=== PATIENT | male | born 1940 | race Caucasian/White ===

== ENCOUNTER 2017-01-14 12:20 | Inpatient (IN) ==
[2017-01-14] MEDS ORDERED: Ondansetron 4 MG/2 ML VIAL IVP ONE ×2 (12:52→16:33)
[2017-01-14] MEDS ORDERED: 0.9 % Sodium Chloride 500 ML IVC ONE (12:53)
[2017-01-14] MEDS ORDERED: *HR* Morphine 2 MG/ML SYRINGE IVP ONE (12:53)
--- NOTE | 2017-01-14 12:56 | Emergency Department Note ---
Disposition Clinical Impression: Metastatic disease, Liver dysplastic nodule, Supratherapeutic INR, Transaminitis Abdominal pain Qualifiers: Abdominal location: unspecified location Qualified Code(s): R10.9 - Unspecified abdominal pain Disposition: Admitted As Inpatient Condition: Fair Abdominal Pain HPI - General Chief Complaint: ED Abdominal Pain Stated Complaint: ABD Pain Time Seen by Provider: 01/14/17 12:38 Source: patient Mode of arrival: wheelchair Limitations: no limitations Nursing Notes Reviewed: Yes Vital Signs Reviewed: Yes - History of Present Illness HPI Narrative: 76-year-old gentleman history of COPD, CVA, A. fib on anticoagulation with Coumadin presents for evaluation of abdominal pain. Patient is a difficult historian is hard of hearing. Much of the history provided by the daughter at bedside. As the patient has had a week's worth of abdominal pain primarily in the right side and right upper quadrant. Evaluated by primary doctor week ago and had a CT of the had is his concerns of head pain as well as ultrasound of the liver. Patient was scheduled to have a follow-up study of CT of the abdomen and pelvis with contrast today. States that the pain has worsened. Pain is primarily in the right side. Reports some nausea no episodes of emesis. Seen in anticoagulation clinic earlier today and was noted to have supratherapeutic INR. No overt signs of bleeding. No difficulty urinating. No change in bowels. No difficulty breathing. Patient does live independently at home. Patient was treated with azithromycin for a sinus infection in the last week. Denies history of ETOH Pt Subjective Complaint: abdominal pain Onset (ago): week(s) Pain Scale: 8 - Related Data Home Medications Medication Instructions Recorded Confirmed Fluticasone/Salmeterol [Advair 1 each IH BID 08/12/15 01/14/17 500-50 Diskus] Lisinopril [Zestril] 10 mg PO DAILY 08/12/15 01/14/17 Omeprazole [PriLOSEC] 20 mg PO DAILY 08/12/15 01/14/17 Potassium Chloride [Klor-Con 10 meq PO DAILY 08/12/15 01/14/17 Sprinkle] Simvastatin [Zocor] 40 mg PO HS 08/12/15 01/14/17 Multivit-Min/FA/Lycopen/Lutein 1 each PO DAILY 01/14/17 01/14/17 [Centrum Silver Tablet] [place]-3/Dha/Epa/Fish Oil [Fish Oil 1,000 mg PO DAILY 01/14/17 01/14/17 1,000 mg Softgel] Warfarin [Coumadin] 2.5 mg PO SUMOTUWE 01/14/17 Allergies Allergy/AdvReac Type Severity Reaction Status Date / Time aspirin Allergy Hives Verified 01/14/17 12:22 Penicillins Allergy Hives Verified 01/14/17 12:22 All systems ED: reviewed and negative except as stated. Constitutional: Reports: as per HPI. Denies: fever Eyes: Reports: as per HPI ENT ED: Reports: as per HPI Cardiovascular: Reports: as per HPI. Denies: palpitations Respiratory: Reports: as per HPI Gastrointestinal: Reports: as per HPI, abdominal pain, nausea. Denies: vomiting Genitourinary: Reports: as per HPI Musculoskeletal: Reports: as per HPI Integumentary: Reports: as per HPI Neurological: Reports: as per HPI Psychiatric: Reports: as per HPI Endocrine: Reports: as per HPI Hematological/Lymphatic: Reports: as per HPI Allergic/Immunologic: Reports: as per HPI Abdominal Pain PMH - Past Medical History Medical history: Reports: COPD, CVA Psychiatric history: Reports: no psych history - Social History Smoking status: Former smoker Alcohol use: Reports: none Drug use: Reports: none Physical Exam - General Limitations: no limitations General appearance: alert, in no apparent distress - Head Head exam: atraumatic, normocephalic, normal inspection - Eye Eye exam: Present: normal appearance, EOMI. Absent: scleral icterus - ENT ENT exam: normal exam, mucous membranes moist - Neck Neck exam: Present: normal inspection, trachea midline - Chest Chest inspection: Present: normal inspection, symmetric chest wall rise - Respiratory Respiratory exam: Present: prolonged expiratory phase, other (Diffusely diminished). Absent: accessory muscle use - Cardiovascular Cardiovascular exam: Present: regular rate, normal rhythm - Abdominal Exam Abdominal exam: Present: soft, tenderness (Mild right-sided tenderness). Absent : distention, guarding, rebound - Extremities Exam Extremities exam: Present: normal inspection. Absent: pedal edema Course Course Narrative: Patient seen and examined upon arrival. Patient's history provided by daughter at bedside. Patient will get a cardio evaluation with EKG as well as abdominal evaluation with CT, labs. Pain control with IV fluids and antiemetics and opiates disposition pending. - Reevaluation(s) Reevaluation #1: Patient seen and examined. Patient pain appears to be controlled. Time: 16:00 Reevaluation #2: Updated family on plan of care. Concerns about metastatic disease to the liver. Patient denies any history of colon cancers. Denies any family history of colon cancers. Denies any recent colonoscopies. Does have a formal smoking history. Time: 16:00 Reevaluation #3: Patient family at bedside. Discussed concerns of malignancy and cancer. Tinted answer all questions at that time. Meal tray ordered. Time: 16:13 Vital Signs Temperature 97.4 F L 01/14/17 12:22 Pulse Rate 119 01/14/17 12:22 Respiratory Rate 18 01/14/17 12:22 Blood Pressure 135/81 01/14/17 12:22 O2 Sat by Pulse Oximetry 95 01/14/17 12:22 Temperature 98.3 F 01/14/17 18:34 Pulse Rate 102 01/14/17 18:34 Respiratory Rate 17 01/14/17 18:34 Blood Pressure 126/81 01/14/17 18:34 O2 Sat by Pulse Oximetry 95 01/14/17 18:34 Oxygen Delivery Oxygen Delivery Room Air Abdominal Pain - MDM Narrative Medical decision making narrative: 76-year-old male percents for evaluation abdominal pain. Patient is a difficult historian. History provided by the daughter at bedside. Notes to be approximately weeks with abdominal pain. Patient's abdominal workup reveals concerns for metastatic disease to the liver. Possible colon versus lung. Patient does have a smoking history. Patient also has no known recent colonoscopies. Patient's abnormalities on CAT scan likely treated T abnormalities in the lab work. Patient does have elevated total bilirubin as well as transaminitis and alkaline phosphatase. His pain was controlled with opiates. Patient's abdominal exam is nonsurgical. Information and concerns for possible metastatic disease was related to the family as well as the patient bedside. Patient be admitted to the hospital service for pain control and further monitoring to find the etiology of the patient's malignancy. - Lab Data Lab results reviewed: Yes I reviewed the patient's lab results. Result diagrams: 01/14/17 13:05 01/14/17 13:05 Lab Results 01/14/17 01/14/17 01/14/17 Range/Units 13:05 13:05 13:05 WBC 10.3 (4.3-11.1) K/mcL RBC 5.41 (4.19-5.50) M/mcL Hgb 16.0 (12.9-16.9) g/dL Hct 47.7 (37.5-50.1) % MCV 88.2 (83.0-100.0) fL MCH 29.6 (28.0-33.3) pg MCHC 33.5 (31.6-35.5) g/dL RDW 17.7 H (11.5-14.5) % Plt Count 243 (140-400) K/mcL MPV 11.2 (9.4-12.4) fL Immature Gran % 1.1 (0-4) % Seg Neutrophils % 70.8 % Lymphocytes % 16.2 % Monocytes % 9.5 % Eosinophils % 1.8 % Basophils % 0.6 % Neutrophils # 7.3 (1.6-8.9) K/mcL Lymphocytes # 1.7 (0.6-4.6) K/mcL Monocytes # 1.0 (0.0-1.3) K/mcL Eosinophils # 0.2 (0.0-0.6) K/mcL Basophils # 0.1 (0.0-0.2) K/mcL PT 65.0 H* (9.4-12.1) Seconds INR 5.7 H* Sodium 135 L (136-145) mEq/L Potassium 4.4 (3.5-4.5) mEq/L Chloride 101 (98-109) mEq/L Carbon Dioxide 25 (19-29) mEq/L BUN 20 (8-26) mg/dL Creatinine 1.16 (0.72-1.25) mg/dL Est GFR ( Amer) > 60 (> 60) Est GFR (Non-Af Amer) > 60 (> 60) BUN/Creatinine Ratio 17 (6-26) Glucose 72 (70-99) mg/dL Calculated Osmolality 281 (280-300) Lactic Acid (0.5-2.2) mmol/L Calcium 9.8 (8.6-10.8) mg/dL Total Bilirubin 6.6 H (0.2-1.2) mg/dL Direct Bilirubin 5.0 H (0.0-0.5) mg/dL Indirect Bilirubin 1.6 H (0.0-1.2) mg/dL AST 202 H (5-34) Units/L ALT 59 H (0-55) Units/L Alkaline Phosphatase 310 H (38-126) Units/L Troponin I (0-0.03) ng/mL Serum Total Protein 7.0 (6.0-8.3) g/dL Albumin 2.7 L (3.5-5.0) g/dL Globulin 4.3 H (2.4-3.5) g/dL Albumin/Globulin Ratio 0.6 L (1.1-2.2) Lipase 105 H (8-78) Units/L Urine Color (Yellow) Urine Clarity (Clear) Urine pH (5.0-8.0) pH Units Ur Specific [place] (1.010-1.025) Urine Protein (Neg-Trace) mg/dL Urine Glucose (UA) (Normal) mg/dL Urine Ketones (Negative) mg/dL Urine Blood (Negative) Urine Nitrite (Negative) Urine Bilirubin (Negative) Urine Urobilinogen (Normal) mg/dL Ur Leukocyte Esterase (Negative) Urine Microscopic RBC (0-3) per hpf Urine Microscopic WBC (0-3) per hpf Ur Squamous Epith Cells (None-Few) per lpf Urine Bacteria (None-Few) per hpf Hyaline Casts (None-Few) per lpf Ur Culture Indicated? (NO) 01/14/17 01/14/17 01/14/17 Range/Units 13:05 13:05 15:23 WBC (4.3-11.1) K/mcL RBC (4.19-5.50) M/mcL Hgb (12.9-16.9) g/dL Hct (37.5-50.1) % MCV (83.0-100.0) fL MCH (28.0-33.3) pg MCHC (31.6-35.5) g/dL RDW (11.5-14.5) % Plt Count (140-400) K/mcL MPV (9.4-12.4) fL Immature Gran % (0-4) % Seg Neutrophils % % Lymphocytes % % Monocytes % % Eosinophils % % Basophils % % Neutrophils # (1.6-8.9) K/mcL Lymphocytes # (0.6-4.6) K/mcL Monocytes # (0.0-1.3) K/mcL Eosinophils # (0.0-0.6) K/mcL Basophils # (0.0-0.2) K/mcL PT (9.4-12.1) Seconds INR Sodium (136-145) mEq/L Potassium (3.5-4.5) mEq/L Chloride (98-109) mEq/L Carbon Dioxide (19-29) mEq/L BUN (8-26) mg/dL Creatinine (0.72-1.25) mg/dL Est GFR ( Amer) (> 60) Est GFR (Non-Af Amer) (> 60) BUN/Creatinine Ratio (6-26) Glucose (70-99) mg/dL Calculated Osmolality (280-300) Lactic Acid 1.8 (0.5-2.2) mmol/L Calcium (8.6-10.8) mg/dL Total Bilirubin (0.2-1.2) mg/dL Direct Bilirubin (0.0-0.5) mg/dL Indirect Bilirubin (0.0-1.2) mg/dL AST (5-34) Units/L ALT (0-55) Units/L Alkaline Phosphatase (38-126) Units/L Troponin I 0.00 (0-0.03) ng/mL Serum Total Protein (6.0-8.3) g/dL Albumin (3.5-5.0) g/dL Globulin (2.4-3.5) g/dL Albumin/Globulin Ratio (1.1-2.2) Lipase (8-78) Units/L Urine Color [place] A (Yellow) Urine Clarity Cloudy A (Clear) Urine pH 5.0 (5.0-8.0) pH Units Ur Specific [place] 1.029 H (1.010-1.025) Urine Protein Trace (Neg-Trace) mg/dL Urine Glucose (UA) Normal (Normal) mg/dL Urine Ketones 15 H (Negative) mg/dL Urine Blood Large H (Negative) Urine Nitrite Negative (Negative) Urine Bilirubin Moderate H (Negative) Urine Urobilinogen Normal (Normal) mg/dL Ur Leukocyte Esterase Trace H (Negative) Urine Microscopic RBC TNTC H (0-3) per hpf Urine Microscopic WBC 0-3 (0-3) per hpf Ur Squamous Epith Cells Moderate H (None-Few) per lpf Urine Bacteria None Seen (None-Few) per hpf Hyaline Casts None Seen (None-Few) per lpf Ur Culture Indicated? YES A (NO) - Radiology Data Radiology results reviewed: Yes I reviewed the patient's radiology results. Abdomen/Pelvis CT 01/14/17 13:50 IMPRESSION: 1. Innumerable liver lesions most consistent with metastatic disease. 2. New, pulmonary nodules within the right middle and right lower lobe concerning for metastatic origin. 3. Small right pleural effusion. 4. Question of asymmetric right colon wall thickening. Recommend colonoscopy. D/ / 01/14/2017 15:03:49 Enrique Mike MD / Cassidy Conrad Interpreting Provider: Enrique Mike MD - EKG Data EKG attestation: Yes I reviewed and interpreted this EKG. Rate: tachycardia Rhythm: A.Fib Zap/QRS: left axis deviation Interpretation: no acute changes, unchanged when compared to prior tracing (date ), nonspecific ST-T wave changes S.B.A.R. - S.B.A.R. Situation: Demographics, MOA Background: Presenting Complaint Assessment: Vital Signs, Course and respsone to treatment, Patient/Family Expectation Recommendation: Barrier(s) to disposition, Recommendation based on pending studies, treatments, or consults S.B.A.R. Report Given to: Ema Pepper Repor Time: 16:02 Attestation Statement - Attestation Attestation: I examined this patient and my medical decision-making was reviewed with the LABEL REMOVER/PA/Advanced Practice Nurse/Resident Physician. I agree with the documented findings, disposition and treatment plan as described except to the extent set forth below. 76-year-old male presents to the ED by family due to ongoing abdominal pain. He has had several week progression of pain in his upper abdomen more so on the right upper quadrant. Poor appetite. No worsening of the pain with food. No associated fevers. No vomiting or diarrhea. No chest pain or dyspnea. Pleasant elderly male with very poor hearing and most medication is through his daughter writing questions. Chest is clear bilaterally. Chest wall nontender. Oropharynx is clear and moist. Abdomen soft with moderate tenderness in the upper abdomen. Bowel sounds are present throughout. No gross distention of the abdomen. Extremities warm and dry. He was provided with symptom control. Labs reveal moderate elevation of his AST , AST and alkaline phosphatase was elevated bilirubin as well. CT of the abdomen reveals multiple masses within the liver consistent with metastatic process. He will be admitted for further evaluation.
[2017-01-14 13:18] LABS: Basophils # 0.1 K/mcL (0.0-0.2); Basophils % 0.6 %; Eosinophils # 0.2 K/mcL (0.0-0.6); Eosinophils % 1.8 %; Hematocrit 47.7 % (37.5-50.1); Immature Granulocytes % 1.1 % (0-4); Lymphocytes # 1.7 K/mcL (0.6-4.6); Lymphocytes % 16.2 %; Mean Corpuscular HGB Conc 33.5 g/dL (31.6-35.5); Mean Corpuscular Hemoglobin 29.6 pg (28.0-33.3); Mean Corpuscular Volume 88.2 fL (83.0-100.0); Mean Platelet Volume 11.2 fL (9.4-12.4); Monocytes % 9.5 %; Neutrophils # 7.3 K/mcL (1.6-8.9); Platelet Count 243 K/mcL (140-400); Red Blood Count 5.41 M/mcL (4.19-5.50); Red Cell Distribution Width 17.7 % (11.5-14.5); Segmented Neutrophils % 70.8 %
[2017-01-14 13:31] LABS: Alanine Aminotransferase 59 Units/L (0-55); Albumin 2.7 g/dL (3.5-5.0); Albumin/Globulin Ratio 0.6 (1.1-2.2); Alkaline Phosphatase 310 Units/L (38-126); Aspartate Amino Transferase 202 Units/L (5-34); BUN/Creatinine Ratio 17 (6-26); Bilirubin,Indirect 1.6 mg/dL (0.0-1.2); Bilirubin,Total 6.6 mg/dL (0.2-1.2); Blood Urea Nitrogen 20 mg/dL (8-26); Calcium 9.8 mg/dL (8.6-10.8); Carbon Dioxide 25 mEq/L (19-29); Chloride 101 mEq/L (98-109); Globulin 4.3 g/dL (2.4-3.5); Glucose 72 mg/dL (70-99); Lipase 105 Units/L (8-78); Osmolality,Calculated 281 (280-300); Potassium 4.4 mEq/L (3.5-4.5); Sodium 135 mEq/L (136-145); eGFR For African Americans > 60 (> 60); eGFR For Non-African Americans > 60 (> 60)
[2017-01-14 13:37] LABS: INR 5.7
[2017-01-14 15:40] LABS: Bilirubin,Urine Moderate (Negative); Blood,Urine Large (Negative); Clarity,Urine Cloudy (Clear); Color,Urine Orange (Yellow); Glucose,Urine (UA) Normal (Normal); Ketones,Urine 15 mg/dL (Negative); Leukocyte Esterase,Urine Trace (Negative); Nitrite,Urine Negative (Negative); Protein,Urine Trace mg/dL (Neg-Trace); Specific Gravity,Urine 1.029 (1.010-1.025); Urobilinogen,Urine Normal (Normal)
[2017-01-14 15:42] LABS: Bacteria,Urine None Seen per hpf (None-Few); Hyaline Casts,Urine None Seen per lpf (None-Few); RBC,Urine TNTC per hpf (0-3); Squamous Epithelial Cell,Urine Moderate per lpf (None-Few); WBC,Urine 0-3 per hpf (0-3)
[2017-01-14] MEDS ORDERED: Naloxone 0.4 MG/ML INJ IVP PRN (21:02)
[2017-01-14] MEDS ORDERED: *HR* HYDROmorphone (PF) 1 MG/ML SYRINGE IVP PRN (21:05)
[2017-01-14] MEDS ORDERED: *HR* Morphine 2 MG/ML SYRINGE IVP PRN (21:05)
[2017-01-14] MEDS ORDERED: *HR* Phytonadione 5 MG TABLET PO ONE (21:06)
--- NOTE | 2017-01-14 21:29 | Electrocardiograph Report ---
[place] [facility] Test Date: 2017-01-14 Pat Name: Francis Berry Department: 102 Room: 3A52 Gender: M Recruitment Consultant: Eduardo : 1940 Requested By: Espinoza Nash Order Number: [id number] Reading MD: Tom Cerrato MD Measurements Intervals [place] Rate: 126 P: [place]: 0 QRS: -12 QRSD: 74 T: 30 QT: 300 QTc: 375 Interpretive Statements ATRIAL FIBRILLATION WITH RAPID VENTRICULAR RESPONSE NONSPECIFIC T-WAVE ABNORMALITY ABNORMAL RHYTHM ECG Electronically Signed On 01-14-2017 21:28:01 EDT by Tom Cerrato MD
--- NOTE | 2017-01-14 21:44 | Internal Med History&Physical ---
Date of Encounter: 01/14/17 Time of Encounter: 21:00 Assessment and Plan (1) Abdominal pain Current visit: Yes Status: Acute Likely due to metastatic burden on the liver. Pain relief as needed. Qualifiers: Abdominal location: right upper quadrant Qualified Code(s): R10.11 - Right upper quadrant pain (2) Liver metastases Current visit: Yes Status: Acute Unknown primary at this time. CT scan of the abdomen reports colon wall thickening and recommends colonoscopy. check CEA, AFP, Ca19-9. Will consult GI for possible colonoscopy. If negative, consider CT neck, as the pt reports discomfort in the throat and is being treated with azithromycin by the PCP. Consider Oncology consult. INR is supratherapeutic at this time - and cannot have tissue biopsy at this time. Hold warfarin, will give oral vitamin K and monitor INR (3) Lung metastases Current visit: Yes Status: Acute Unknown primary at this time. CT scan of the abdomen reports colon wall thickening and recommends colonoscopy. check CEA, AFP, Ca19-9. Will consult GI for possible colonoscopy. If negative, consider CT neck, as the pt reports discomfort in the throat and is being treated with azithromycin by the PCP. Consider Oncology consult. Qualifiers: Laterality: right Qualified Code(s): C78.01 - Secondary malignant neoplasm of right lung (4) Supratherapeutic INR Current visit: Yes Status: Acute Hold warfarin, will give oral vitamin K and monitor INR. (5) Hilar adenopathy Current visit: Yes Status: Acute Radiologist recommends CT chest for further evaluation (6) Colon wall thickening Current visit: Yes Status: Acute CT scan showed assymetric right colon wall thickening. Will check CEA. GI consult for possible colonoscopy (7) Pleural effusion, right Current visit: Yes Status: Acute Monitor (8) Atrial fibrillation Current visit: Yes Status: Acute laboratory monitor. Hold warfarin Qualifiers: Atrial fibrillation type: chronic Qualified Code(s): I48.2 - Chronic atrial fibrillation (9) Transaminitis Current visit: Yes Status: Acute Likely secondary to metastatic disease. Internal Medicine - H&P: HPI Chief complaint: RUQ abdominal pain Admitted From: Emergency Dept Plans for Post Hospital Care: Home History of present illness: Pt has hearing problems and hence I communicated with the pt, by writing on the paper. Pts daughter at the bedside and was able to give clinical details. Mr. Berry is a 76 year old male with past medical history significant for atrial fibrillationon anticoagulation with warfarin, COPD, HTN. He reports history of abdominal/right upper quadrant abdominal pain. He recently had ultrasound scan of the liver showed multiple nodules throughout the liver suspicious for metastasis. Patient was advised to have a CT scan of the abdomen and was supposed to have it done today. Patient apparently had severe right upper quadrant abdominal pain and hence his daughter brought him to the emergency department. Patient describes a cramp-like pain in the right upper quadrant/right infra-axillary area, with pain going to the anterior abdomen. Pain is 8/10 and worse on movement and deep breath. He denies nausea vomiting. He denies chest pain, shortness of breath. Reports occasional back sputum. He reports dark orange colored urine but denies dysuria or hematuria. He denies melena/hematochezia. He reports reduced appetite and has not eaten 48 hours. He reports 10 pound weight loss since [place]-time. He reports difficulty swallowing and discomfort in the throat for a few weeks. He has no known h/o cancers. He apparently never had colonoscopy. He was evaluated in the emergency department and the CT scan of abdomen and pelvis reported: 1. Innumerable liver lesions most consistent with metastatic disease. 2. New, pulmonary nodules within the right middle and right lower lobe concerning for metastatic origin. 3. Small right pleural effusion. 4. Question of asymmetric right colon wall thickening. Recommend colonoscopy. He is admitted to the hospitalist service for further workup and management. Past Med Surg Social Fam HX - Past Medical History Medical history: COPD, CVA Psychiatric history: no psych history - Social History Smoking Status: Former smoker Smokeless Tobacco Status: No Alcohol use: none Drug use: none - Additional Family History Additional family history: His mother had h/o crohns's disease and of complications Internal Medicine - H&P: Meds Fluticasone/Salmeterol [Advair 500-50 Diskus] 1 each IH BID 08/12/15 [History] Lisinopril [Zestril] 10 mg PO DAILY 08/12/15 [History] Omeprazole [PriLOSEC] 20 mg PO DAILY 08/12/15 [History] Potassium Chloride [Klor-Con Sprinkle] 10 meq PO DAILY 08/12/15 [History] Simvastatin [Zocor] 40 mg PO HS 08/12/15 [History] Multivit-Min/FA/Lycopen/Lutein [Centrum Silver Tablet] 1 each PO DAILY 01/14/17 [History] [place]-3/Dha/Epa/Fish Oil [Fish Oil 1,000 mg Softgel] 1,000 mg PO DAILY 01/14/17 [History] Warfarin [Coumadin] 2.5 mg PO SUMOTUWE 01/14/17 [History] Allergies aspirin Allergy (Verified 01/14/17 12:22) Hives Penicillins Allergy (Verified 01/14/17 12:22) Hives All Systems PM: A 10-system review of systems was performed and is negative for pertinent findings except as documented above in the HPI. - Constitutional Vitals: Temp Pulse Resp BP Pulse Ox 98.3 F 102 17 126/81 95 01/14/17 18:34 01/14/17 18:34 01/14/17 18:34 01/14/17 18:34 01/14/17 18:34 Exam: General: In mild distress at the time of my evaluation HEENT: Oral mucosa is moist. scleral icterus present Neck: No obvious neck swellings Lungs: Clear to auscultation Cardiac: Irregular rhythm. No significant murmurs Abdomen: RUQ and epigastric tenderness present. Bowel sounds present Genitourinary: No stout catheter Neurological: Alert and oriented. No gross localizing deficits Psych: Not aggressive or agitated Extremities: Mild leg edema present Skin: No generalized rash Internal Med - H&P Results - Labs CBC & Chem 7: 01/15/17 05:02 01/15/17 05:02 - EKG Data -: EKG Interpreted by Myself - EKG Data EKG comments: Atrial fibrillation with rapid response, heart rate of 126 01/15/17 04:38 - Impressions ITS Impressions Abdomen/Pelvis CT 01/14/17 13:50 IMPRESSION: 1. Innumerable liver lesions most consistent with metastatic disease. 2. New, pulmonary nodules within the right middle and right lower lobe concerning for metastatic origin. 3. Small right pleural effusion. 4. Question of asymmetric right colon wall thickening. Recommend colonoscopy. D/ / 01/14/2017 15:03:49 Enrique Mike MD / Cassidy Conrad Interpreting Provider: Enrique Mike MD Chest X-Ray 01/14/17 15:58 IMPRESSION: 1. 1.8 cm left hilar nodule. A follow-up chest CT is recommended, especially given the findings of metastatic disease in the abdomen. 2. No acute cardiopulmonary disease D/ / Abran Duong MD / Abran Duong MD Interpreting Provider: Abran Duong MD - VTE Reasons for not Prescribing Prophylaxis: Not indicated-Anticoagulated or INR therapeutic
[2017-01-15 05:30] LABS: INR 6.2; Prothrombin Time 70.3 Seconds (9.4-12.1)
[2017-01-15 05:40] LABS: Alanine Aminotransferase 54 Units/L (0-55); Albumin 2.4 g/dL (3.5-5.0); Albumin/Globulin Ratio 0.6 (1.1-2.2); Alkaline Phosphatase 280 Units/L (38-126); Aspartate Amino Transferase 202 Units/L (5-34); BUN/Creatinine Ratio 19 (6-26); Bilirubin,Total 5.6 mg/dL (0.2-1.2); Blood Urea Nitrogen 20 mg/dL (8-26); Calcium 9.2 mg/dL (8.6-10.8); Carbon Dioxide 23 mEq/L (19-29); Chloride 101 mEq/L (98-109); Globulin 3.9 g/dL (2.4-3.5); Glucose 88 mg/dL (70-99); Magnesium 1.7 mg/dL (1.6-2.6); Osmolality,Calculated 278 (280-300); Potassium 4.2 mEq/L (3.5-4.5); Sodium 133 mEq/L (136-145); Total Protein 6.3 g/dL (6.0-8.3); eGFR For African Americans > 60 (> 60); eGFR For Non-African Americans > 60 (> 60)
[2017-01-15 05:45] LABS: Hematocrit 44.4 % (37.5-50.1); Hemoglobin 14.6 g/dL (12.9-16.9); Mean Corpuscular HGB Conc 32.9 g/dL (31.6-35.5); Mean Corpuscular Hemoglobin 28.8 pg (28.0-33.3); Mean Corpuscular Volume 87.6 fL (83.0-100.0); Mean Platelet Volume 11.2 fL (9.4-12.4); Platelet Count 221 K/mcL (140-400); Red Blood Count 5.07 M/mcL (4.19-5.50); Red Cell Distribution Width 16.5 % (11.5-14.5)
[2017-01-15 06:23] LABS: Carcinoembryonic Antigen 210.9 ng/mL (0-5.0)
[2017-01-15] MEDS: Budesonide/Formoterol 160/4.5 MDI IH SCH ×2 (08:23→20:09)
[2017-01-15] MEDS: Multivit/Ca/Min/Fe/FA 1 TAB TABLET PO SCH (09:17)
[2017-01-15] MEDS ORDERED: *HR* Morphine 2 MG/ML SYRINGE IVP PRN (11:58)
[2017-01-15] MEDS ORDERED: 0.9 % Sodium Chloride 250 ML ONE (12:58)
--- NOTE | 2017-01-15 15:09 | Internal Med Progress Note ---
Date of Encounter: 01/15/17 Time of Encounter: 15:07 - Assessment and plan (1) Primary esophageal malignancy Current Visit: Yes Status: Acute Assessment and plan: CT of the chest showed distal esophageal mass, most likely primary. GI on board, plan for EGD with biopsy on Wednesday. Will need oncology consultation after the biopsy. (2) Abdominal pain Current Visit: Yes Status: Acute Assessment and plan: Much better than yesterday, most likely secondary to esophageal mass discovered on the CAT scan. Continue pain medications. Qualifiers: Abdominal location: epigastric Qualified Code(s): R10.13 - Epigastric pain (3) Supratherapeutic INR Current Visit: Yes Status: Acute Assessment and plan: Patient on Coumadin for atrial fibrillation. INR supratherapeutic at 5.7, was given vitamin K yesterday, repeat INR increased to 6.2. Will have to reverse coagulopathy as patient needs to undergo esophageal mass biopsy. Will transfuse fresh frozen plasma today, repeat INR, goal INR less than 1.5 for procedure on Wednesday. (4) Liver metastases Current Visit: Yes Status: Acute (5) Lung metastases Current Visit: Yes Status: Acute Qualifiers: Laterality: right Qualified Code(s): C78.01 - Secondary malignant neoplasm of right lung (6) Atrial fibrillation Current Visit: Yes Status: Acute Assessment and plan: Stable, anticoagulation has been held for supratherapeutic INR in anticipation of biopsy of esophageal mass on Wednesday. Qualifiers: Atrial fibrillation type: chronic Qualified Code(s): I48.2 - Chronic atrial fibrillation - Subjective Interval history: Patient seen at the bedside, deficit in both ears, daughter at the bedside. Reports that the pain is much better on the right side of the abdomen compared to yesterday. Denies any nausea, vomiting, chest pain, bleeding from any sites of the body. - Constitutional Vitals: Temp Pulse Resp BP Pulse Ox 98.3 F 102 17 125/78 93 01/15/17 13:36 01/15/17 13:36 01/15/17 13:36 01/15/17 13:36 01/15/17 13:36 General appearance: Present: A&O X 3 Exam: HEENT: Oral mucosa is moist. scleral icterus present Neck: No obvious neck swellings Lungs: Clear to auscultation Cardiac: S1 and S2, no murmurs rubs or gallops Abdomen: RUQ and epigastric tenderness present. Bowel sounds present Genitourinary: No stout catheter Neurological: Alert and oriented. No gross localizing deficits Psych: Not aggressive or agitated Extremities: No edema Skin: No generalized rash Internal Medicine: Result - Labs CBC & Chem 7: 01/15/17 05:02 01/15/17 05:02 Labs: Short CBC 01/15/17 Range/Units 05:02 WBC 9.1 (4.3-11.1) K/mcL Hgb 14.6 (12.9-16.9) g/dL Hct 44.4 (37.5-50.1) % Plt Count 221 (140-400) K/mcL BMP 01/15/17 05:02 Sodium 133 L Potassium 4.2 Chloride 101 Carbon Dioxide 23 BUN 20 Creatinine 1.07 Glucose 88 Calcium 9.2 Liver Function 01/15/17 Range/Units 05:02 Total Bilirubin 5.6 H (0.2-1.2) mg/dL AST 202 H (5-34) Units/L ALT 54 (0-55) Units/L Alkaline Phosphatase 280 H (38-126) Units/L Albumin 2.4 L (3.5-5.0) g/dL - ABG Interpretation ABG results: PT/INR, D-dimer PT 70.3 Seconds (9.4-12.1) H* 01/15/17 05:02 - Impressions Impressions Chest CT 01/15/17 10:38 IMPRESSION: 1. Large soft tissue mass in the distal esophagus measuring 3.3 x 3.1 cm, compatible with primary esophageal cancer. 2. Paraesophageal lymph node, compatible with metastatic disease. 3. Multiple pulmonary nodules, compatible with metastatic disease. 4. Re-demonstration of liver metastases seen to better advantage on prior CT with IV contrast. 5. Emphysema. Findings were discussed with Dr. Iverson on 01/15/2017 at 11:50 a.m. D/ / 01/15/2017 12:12:26 Leola Hardin MD / terrell Interpreting Provider: Leola Hardin MD - VTE Reasons for not Prescribing Prophylaxis: Not indicated-Anticoagulated or INR therapeutic Consult Discharge Plan - Plan Referrals: Cici Godinez CNP [Primary Care Provider] -
--- NOTE | 2017-01-15 15:19 | Event Note ---
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 Coagulopathy with high INR due to coumadin Rec; Correct coagulopathy EGD with biopsies on wednesday
[2017-01-15] MEDS: Ipratropium/Albuterol Neb 3 ML IH PRN (20:09)
[2017-01-15] MEDS: *HR* OxyCODONE Immed Rel 5 MG TABLET PO PRN (21:28)
[2017-01-16] MEDS: Multivit/Ca/Min/Fe/FA 1 TAB TABLET PO SCH (08:50)
[2017-01-16 09:11] LABS: Basophils # 0.1 K/mcL (0.0-0.2); Basophils % 0.7 %; Eosinophils # 0.3 K/mcL (0.0-0.6); Hematocrit 43.8 % (37.5-50.1); Hemoglobin 14.7 g/dL (12.9-16.9); INR 1.6; Immature Granulocytes % 0.6 % (0-4); Lymphocytes # 1.1 K/mcL (0.6-4.6); Lymphocytes % 12.9 %; Mean Corpuscular HGB Conc 33.6 g/dL (31.6-35.5); Mean Corpuscular Hemoglobin 29.3 pg (28.0-33.3); Mean Corpuscular Volume 87.3 fL (83.0-100.0); Mean Platelet Volume 10.8 fL (9.4-12.4); Monocytes # 0.8 K/mcL (0.0-1.3); Neutrophils # 6.3 K/mcL (1.6-8.9); Platelet Count 217 K/mcL (140-400); Prothrombin Time 17.1 Seconds (9.4-12.1); Red Blood Count 5.02 M/mcL (4.19-5.50); Red Cell Distribution Width 16.4 % (11.5-14.5); Segmented Neutrophils % 73.8 %
[2017-01-16 09:17] LABS: BUN/Creatinine Ratio 14 (6-26); Blood Urea Nitrogen 14 mg/dL (8-26); Calcium 9.1 mg/dL (8.6-10.8); Carbon Dioxide 21 mEq/L (19-29); Chloride 103 mEq/L (98-109); Glucose 152 mg/dL (70-99); Osmolality,Calculated 285 (280-300); Potassium 3.8 mEq/L (3.5-4.5); Sodium 136 mEq/L (136-145); eGFR For African Americans > 60 (> 60); eGFR For Non-African Americans > 60 (> 60)
[2017-01-16] MEDS: Budesonide/Formoterol 160/4.5 MDI IH SCH ×2 (10:40→20:19)
[2017-01-16] MEDS: Ipratropium/Albuterol Neb 3 ML IH PRN (10:43)
--- NOTE | 2017-01-16 11:53 | Internal Med Progress Note ---
Date of Encounter: 01/16/17 Time of Encounter: 11:51 - Assessment and plan (1) Primary esophageal malignancy Current Visit: Yes Status: Acute Assessment and plan: CT of the chest showed distal esophageal mass, most likely primary. GI on board, plan for EGD with biopsy on Wednesday. will consult oncology after biospy (2) Abdominal pain Current Visit: Yes Status: Acute Assessment and plan: most likely secondary to esophageal mass discovered on the CAT scan. Continue pain medications. Qualifiers: Abdominal location: epigastric Qualified Code(s): R10.13 - Epigastric pain (3) Supratherapeutic INR Current Visit: Yes Status: Acute Assessment and plan: Patient on Coumadin for atrial fibrillation. INR 1.6 today , s/p FFP yesterday hold coumadin for now for EGD and biopsy on wednesday. (4) Liver metastases Current Visit: Yes Status: Acute (5) Lung metastases Current Visit: Yes Status: Acute Qualifiers: Laterality: right Qualified Code(s): C78.01 - Secondary malignant neoplasm of right lung (6) Atrial fibrillation Current Visit: Yes Status: Acute Assessment and plan: Stable, anticoagulation has been held for supratherapeutic INR in anticipation of biopsy of esophageal mass on Wednesday. 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 does not have much pain now. Denies any nausea, vomiting, chest pain, bleeding from any sites of the body. planned for EGD with biopsy on wednesday with GI - Constitutional Vitals: Temp Pulse Resp BP Pulse Ox 97.9 F 105 18 124/85 94 01/16/17 11:15 01/16/17 11:15 01/16/17 11:15 01/16/17 11:15 01/16/17 11:15 General appearance: Present: A&O X 3 Exam: neck- supple chest- b/l clear, no added sounds CVS-s1 and s2, no mr//g abd-soft, mild tenderness in epigastrium and RUQ, bs are present ext- no edema Internal Medicine: Result - Labs CBC & Chem 7: 01/16/17 08:59 01/16/17 08:59 Labs: Short CBC 01/16/17 Range/Units 08:59 WBC 8.6 (4.3-11.1) K/mcL Hgb 14.7 (12.9-16.9) g/dL Hct 43.8 (37.5-50.1) % Plt Count 217 (140-400) K/mcL Neutrophils # 6.3 (1.6-8.9) K/mcL BMP 01/16/17 08:59 Sodium 136 Potassium 3.8 Chloride 103 Carbon Dioxide 21 BUN 14 Creatinine 1.01 Glucose 152 H Calcium 9.1 - ABG Interpretation ABG results: PT/INR, D-dimer PT 17.1 Seconds (9.4-12.1) H D 01/16/17 08:59 - Impressions Impressions Chest CT 01/15/17 10:38 IMPRESSION: 1. Large soft tissue mass in the distal esophagus measuring 3.3 x 3.1 cm, compatible with primary esophageal cancer. 2. Paraesophageal lymph node, compatible with metastatic disease. 3. Multiple pulmonary nodules, compatible with metastatic disease. 4. Re-demonstration of liver metastases seen to better advantage on prior CT with IV contrast. 5. Emphysema. Findings were discussed with Dr. Iverson on 01/15/2017 at 11:50 a.m. D/ / 01/15/2017 12:12:26 Leola Hardin MD / terrell Interpreting Provider: Leola Hardin MD - VTE Reasons for not Prescribing Prophylaxis: Not indicated-Anticoagulated or INR therapeutic Consult Discharge Plan - Plan Referrals: Ccii Godinez CNP [Primary Care Provider] -
[2017-01-16] MEDS: *HR* OxyCODONE Immed Rel 5 MG TABLET PO PRN ×2 (15:31→21:20)
[2017-01-17] MEDS: Budesonide/Formoterol 160/4.5 MDI IH SCH ×2 (07:56→20:29)
[2017-01-17] MEDS: Multivit/Ca/Min/Fe/FA 1 TAB TABLET PO SCH (08:04)
[2017-01-17 08:30] LABS: Basophils # 0.1 K/mcL (0.0-0.2); Basophils % 0.6 %; Eosinophils # 0.4 K/mcL (0.0-0.6); Eosinophils % 3.7 %; Hematocrit 44.4 % (37.5-50.1); Hemoglobin 14.7 g/dL (12.9-16.9); Immature Granulocytes % 1.1 % (0-4); Immature Platelets 5.7 % (1.1-6.1); Lymphocytes # 1.5 K/mcL (0.6-4.6); Lymphocytes % 13.6 %; Mean Corpuscular HGB Conc 33.1 g/dL (31.6-35.5); Mean Corpuscular Hemoglobin 29.3 pg (28.0-33.3); Mean Corpuscular Volume 88.6 fL (83.0-100.0); Mean Platelet Volume 10.4 fL (9.4-12.4); Monocytes # 1.2 K/mcL (0.0-1.3); Monocytes % 10.9 %; Neutrophils # 7.5 K/mcL (1.6-8.9); Platelet Count 228 K/mcL (140-400); Red Blood Count 5.01 M/mcL (4.19-5.50); Red Cell Distribution Width 16.8 % (11.5-14.5); Segmented Neutrophils % 70.1 %
[2017-01-17 08:43] LABS: BUN/Creatinine Ratio 13 (6-26); Blood Urea Nitrogen 14 mg/dL (8-26); Calcium 9.2 mg/dL (8.6-10.8); Carbon Dioxide 25 mEq/L (19-29); Chloride 103 mEq/L (98-109); Glucose 92 mg/dL (70-99); Osmolality,Calculated 286 (280-300); Sodium 138 mEq/L (136-145); eGFR For African Americans > 60 (> 60); eGFR For Non-African Americans > 60 (> 60)
--- NOTE | 2017-01-17 11:42 | Internal Med Progress Note ---
Date of Encounter: 01/17/17 Time of Encounter: 11:41 - Assessment and plan (1) Primary esophageal malignancy Current Visit: Yes Status: Acute Assessment and plan: CT of the chest showed distal esophageal mass, most likely primary. GI on board, plan for EGD with biopsy on Wednesday. will consult oncology after biospy (2) Abdominal pain Current Visit: Yes Status: Acute Assessment and plan: most likely secondary to esophageal mass discovered on the CAT scan. Continue pain medications. Qualifiers: Abdominal location: epigastric Qualified Code(s): R10.13 - Epigastric pain (3) Supratherapeutic INR Current Visit: Yes Status: Acute Assessment and plan: Patient on Coumadin for atrial fibrillation. INR 1.6 yesterday, s/p FFP hold coumadin for now for EGD and biopsy on wednesday. (4) Liver metastases Current Visit: Yes Status: Acute (5) Lung metastases Current Visit: Yes Status: Acute Qualifiers: Laterality: right Qualified Code(s): C78.01 - Secondary malignant neoplasm of right lung (6) Atrial fibrillation Current Visit: Yes Status: Acute Assessment and plan: Stable, anticoagulation has been held for supratherapeutic INR in anticipation of biopsy of esophageal mass on Wednesday. 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 Denies any nausea, vomiting, chest pain, bleeding from any sites of the body. planned for EGD with biopsy on wednesday with GI - Constitutional Vitals: Temp Pulse Resp BP Pulse Ox 98.1 F 103 20 119/81 93 01/17/17 07:24 01/17/17 07:24 01/17/17 07:57 01/17/17 07:24 01/17/17 07:57 General appearance: Present: A&O X 3 Exam: neck- supple chest- b/l clear, no added sounds CVS-s1 and s2, no mr//g abd-soft, mild tenderness in epigastrium and RUQ, bs are present ext- no edema Internal Medicine: Result - Labs CBC & Chem 7: 01/17/17 08:23 01/17/17 08:23 Labs: Short CBC 01/17/17 Range/Units 08:23 WBC 10.7 (4.3-11.1) K/mcL Hgb 14.7 (12.9-16.9) g/dL Hct 44.4 (37.5-50.1) % Plt Count 228 (140-400) K/mcL Neutrophils # 7.5 (1.6-8.9) K/mcL BMP 01/17/17 08:23 Sodium 138 Potassium 4.0 Chloride 103 Carbon Dioxide 25 BUN 14 Creatinine 1.07 Glucose 92 Calcium 9.2 - ABG Interpretation ABG results: PT/INR, D-dimer PT 17.1 Seconds (9.4-12.1) H D 01/16/17 08:59 - VTE Reasons for not Prescribing Prophylaxis: Not indicated-Anticoagulated or INR therapeutic Consult Discharge Plan - Plan Referrals: Cici Godinez [employer] [Primary Care Provider] -
[2017-01-17] MEDS: *HR* OxyCODONE Immed Rel 5 MG TABLET PO PRN (20:42)
[2017-01-18 07:39] LABS: AFP Tumor Marker Non-Pregnant 2888 ng/mL (0-9); Cancer Antigen-GI (CA 19-9) 2524 U/mL (0-37)
[2017-01-18] MEDS: Budesonide/Formoterol 160/4.5 MDI IH SCH ×2 (08:06→22:10)
[2017-01-18] MEDS: Multivit/Ca/Min/Fe/FA 1 TAB TABLET PO SCH (08:32)
[2017-01-18 08:46] LABS: Basophils # 0.1 K/mcL (0.0-0.2); Basophils % 0.6 %; Eosinophils # 0.4 K/mcL (0.0-0.6); Hematocrit 40.8 % (37.5-50.1); Hemoglobin 13.8 g/dL (12.9-16.9); Lymphocytes # 1.5 K/mcL (0.6-4.6); Lymphocytes % 14.7 %; Mean Corpuscular HGB Conc 33.8 g/dL (31.6-35.5); Mean Corpuscular Hemoglobin 29.8 pg (28.0-33.3); Mean Corpuscular Volume 88.1 fL (83.0-100.0); Monocytes # 1.1 K/mcL (0.0-1.3); Monocytes % 10.6 %; Platelet Count 207 K/mcL (140-400); Red Blood Count 4.63 M/mcL (4.19-5.50); Segmented Neutrophils % 69.1 %
[2017-01-18 08:53] LABS: INR 1.4; Prothrombin Time 15.7 Seconds (9.4-12.1)
[2017-01-18 09:03] LABS: BUN/Creatinine Ratio 14 (6-26); Blood Urea Nitrogen 14 mg/dL (8-26); Calcium 9.1 mg/dL (8.6-10.8); Carbon Dioxide 23 mEq/L (19-29); Chloride 106 mEq/L (98-109); Glucose 75 mg/dL (70-99); Osmolality,Calculated 285 (280-300); Potassium 4.2 mEq/L (3.5-4.5); Sodium 138 mEq/L (136-145); eGFR For African Americans > 60 (> 60); eGFR For Non-African Americans > 60 (> 60)
[2017-01-18] MEDS: 0.9 % Sodium Chloride 1,000 ML IVC SCH (12:13)
--- NOTE | 2017-01-18 14:24 | Internal Med Progress Note ---
Date of Encounter: 01/18/17 Time of Encounter: 14:19 - Assessment and plan (1) Primary esophageal malignancy Current Visit: Yes Status: Acute Assessment and plan: CT of the chest showed distal esophageal mass, most likely primary. GI on board, plan for EGD with biopsy today. will consult oncology after biospy (2) Abdominal pain Current Visit: Yes Status: Acute Assessment and plan: most likely secondary to esophageal mass discovered on the CAT scan. Continue pain medications. Qualifiers: Abdominal location: epigastric Qualified Code(s): R10.13 - Epigastric pain (3) Supratherapeutic INR Current Visit: Yes Status: Acute Assessment and plan: Patient on Coumadin for atrial fibrillation. INR 1.4 today hold coumadin for now for EGD and biopsy, will restart once stable after caridad procedure (4) Liver metastases Current Visit: Yes Status: Acute (5) Lung metastases Current Visit: Yes Status: Acute Qualifiers: Laterality: right Qualified Code(s): C78.01 - Secondary malignant neoplasm of right lung (6) Atrial fibrillation Current Visit: Yes Status: Acute Assessment and plan: Stable, anticoagulation has been held for biopsy of esophageal mass today. 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 Denies any nausea, vomiting, chest pain, bleeding from any sites of the body. planned for EGD with biopsy today with GI. - Constitutional Vitals: Temp Pulse Resp BP Pulse Ox 97.9 F 106 18 111/79 95 01/18/17 06:37 01/18/17 06:37 01/18/17 08:06 01/18/17 06:37 01/18/17 08:06 General appearance: Present: A&O X 3 Exam: neck- supple chest- b/l clear, no added sounds CVS-s1 and s2, no mr//g abd-soft, mild tenderness in RUQ, bs are present ext- no edema Internal Medicine: Result - Labs CBC & Chem 7: 01/18/17 08:16 01/18/17 08:16 Labs: Short CBC 01/18/17 Range/Units 08:16 WBC 10.2 (4.3-11.1) K/mcL Hgb 13.8 (12.9-16.9) g/dL Hct 40.8 (37.5-50.1) % Plt Count 207 (140-400) K/mcL Neutrophils # 7.0 (1.6-8.9) K/mcL BMP 01/18/17 08:16 Sodium 138 Potassium 4.2 Chloride 106 Carbon Dioxide 23 BUN 14 Creatinine 0.99 Glucose 75 Calcium 9.1 - ABG Interpretation ABG results: PT/INR, D-dimer PT 15.7 Seconds (9.4-12.1) H 01/18/17 08:16 - VTE Reasons for not Prescribing Prophylaxis: Not indicated-Anticoagulated or INR therapeutic Consult Discharge Plan - Plan Referrals: Cici Godinez [employer] [Primary Care Provider] -
[2017-01-18] MEDS ORDERED: *HR* FentaNYL (PF) 100 MCG/2 ML VIAL ONE (15:59)
[2017-01-18] MEDS ORDERED: *HR* Midazolam HCl 5 MG/5 ML VIAL IVP ONE (15:59)
--- NOTE | 2017-01-18 16:15 | Gastroenterology Consult Note ---
<Kali Gottlieb - Last Filed: 01/18/17 16:13> Date of Encounter: 01/18/17 Time of Encounter: 11:45 - Assessment and plan (1) Primary esophageal malignancy Current Visit: Yes Status: Acute Assessment and plan: CT of the chest showed distal esophageal mass, most likely primary. Plan for EGD today. (2) Abdominal pain Current Visit: Yes Status: Acute Assessment and plan: Likely secondary to metastatic disease. Qualifiers: Abdominal location: epigastric Qualified Code(s): R10.13 - Epigastric pain (3) Liver metastases Current Visit: Yes Status: Acute (4) Lung metastases Current Visit: Yes Status: Acute Qualifiers: Laterality: right Qualified Code(s): C78.01 - Secondary malignant neoplasm of right lung (5) Metastatic disease Current Visit: Yes Status: Acute (6) Supratherapeutic INR Current Visit: Yes Status: Acute Assessment and plan: INR 5.7 on admission, today 1.4. - Time Spent With Patient Total time spent is greater than 50% in coordination of care (as documented) at patient's floor/unit and/or counseling patient: GI History of Present Illness - Data of Consult Patient: new to practice Consult date: 01/18/17 Requesting Physician: Lise Iverson - Consult Narrative Reason for consult: Metastatic disease History of present illness: Mr. Berry is a 76 year old male with PMHx of Afib on Coumadin, COPD, HTN who presented with RUQ abdominal pain. He recently had ultrasound scan of the liver showed multiple nodules throughout the liver suspicious for metastasis. Patient was advised to have a CT scan of the abdomen and was supposed to have it done the day of admission. His RUQ pain became severe and he presented to the ED. He denied fever, chest pain, SOB, melena, or hematochezia. He reports difficulty swallowing and discomfort in the throat for a few weeks. He has no known h/o cancers. CT of the chest showed distal esophageal mass, most likely primary. He was noted to have supratherapeutic INR of 5.7 on admission. 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 Patient's family member at bedside. Procedures: None NSAIDs: None Anticoagulation: Coumadin Past Med Surg Social Fam HX - Past Medical History Medical history: COPD, CVA Psychiatric history: no psych history - Social History Smoking Status: Former smoker Smokeless Tobacco Status: No Alcohol use: none Drug use: none - Gastrointestinal Gastrointestinal: Present: as per HPI - Constitutional Constitutional: as per HPI - EENT Eyes: as per HPI Ears: Present: as per HPI Nose, mouth and throat: Present: as per HPI - Cardiovascular Cardiovascular ROS: Present: as per HPI - Respiratory Respiratory IM: Present: as per HPI - Genitourinary Genitourinary: Absent: change in color, Urinary frequency - Neurological ROS Neurological GI: Present: as per HPI - Hematologic/Lymphatic Hematologic/Lymphatic pediatric: Present: as per HPI - Musculoskeletal Musculoskeletal ROS GI: Present: as per HPI - Integumentary Integumentary GI: Present: as per HPI - Psychiatric ROS Psychiatric GI: Present: as per HPI - Endocrine Endocrine IM: Present: as per HPI - Constitutional Vitals: Temp Pulse Resp BP Pulse Ox 98.3 F 102 18 124/78 95 01/18/17 15:18 01/18/17 15:18 01/18/17 15:18 01/18/17 15:18 01/18/17 15:18 General appearance: Present: cooperative, A&O X 3, no acute distress, answers questions appropriately - Head Head exam: Present: atraumatic, normocephalic - Eye Eye exam: Present: normal appearance, sclera anicteric - ENT ENT exam: Present: mucous membranes dry - Neck Neck exam general surgery: Present: normal inspection, trachea midline - Respiratory Respiratory exam: Present: CTAB. Absent: rales, rhonchi - Cardiovascular Cardiovascular exam: Present: RRR, +S1, +S2 - GI/Abdominal GI/Abdominal exam: Present: soft, tenderness (ruq ), no peritoneal signs. Absent: distended, firm, guarding - Rectal Rectal exam: Present: deferred - Extremities Exam Extremities exam: Present: warm - Neurological Exam Neurological exam: Present: no focal deficits - Psychiatric Psychiatric exam: Present: normal affect, normal mood - Skin Skin exam: Present: dry, intact, normal color, warm Results - Labs CBC & Chem 7: 01/18/17 08:16 01/18/17 08:16 Labs: Last Result Calcium 9.1 mg/dL (8.6-10.8) 01/18/17 08:16 Troponin I 0.00 ng/mL (0-0.03) 01/14/17 13:05 Entire Visit Hgb 13.8 g/dL (12.9-16.9) 01/18/17 08:16 Hct 40.8 % (37.5-50.1) 01/18/17 08:16 PT 15.7 Seconds (9.4-12.1) H 01/18/17 08:16 Total Bilirubin 5.6 mg/dL (0.2-1.2) H 01/15/17 05:02 AST 202 Units/L (5-34) H 01/15/17 05:02 ALT 54 Units/L (0-55) 01/15/17 05:02 Lipase 105 Units/L (8-78) H 01/14/17 13:05 Carcinoembryonic Ag 210.9 ng/mL (0-5.0) H 01/15/17 05:02 CA 19-9 Antigen 2524 U/mL (0-37) H 01/15/17 05:02 - ABG ABG results: PT/INR, D-dimer PT 15.7 Seconds (9.4-12.1) H 01/18/17 08:16 Consult Discharge Plan - Plan Referrals: Cici Godinez [employer] [Primary Care Provider] - <Analy Ramos - Last Filed: 01/18/17 17:38> Date of Encounter: 01/18/17 Time of Encounter: 16:00 - Time Spent With Patient Total time spent is greater than 50% in coordination of care (as documented) at patient's floor/unit and/or counseling patient: GI History of Present Illness - Data of Consult Requesting Physician: Lise Iverson - Consult Narrative History of present illness: Mr. Berry is a 76 year old male - Constitutional Vitals: Temp Pulse Resp BP Pulse Ox 98.3 F 102 16 102/71 97 01/18/17 15:18 01/18/17 17:02 01/18/17 17:02 01/18/17 17:02 01/18/17 17:02 Results - Labs CBC & Chem 7: 01/18/17 08:16 01/18/17 08:16 Labs: Last Result Calcium 9.1 mg/dL (8.6-10.8) 01/18/17 08:16 Troponin I 0.00 ng/mL (0-0.03) 01/14/17 13:05 Entire Visit Hgb 13.8 g/dL (12.9-16.9) 01/18/17 08:16 Hct 40.8 % (37.5-50.1) 01/18/17 08:16 PT 15.7 Seconds (9.4-12.1) H 01/18/17 08:16 Total Bilirubin 5.6 mg/dL (0.2-1.2) H 01/15/17 05:02 AST 202 Units/L (5-34) H 01/15/17 05:02 ALT 54 Units/L (0-55) 01/15/17 05:02 Lipase 105 Units/L (8-78) H 01/14/17 13:05 Carcinoembryonic Ag 210.9 ng/mL (0-5.0) H 01/15/17 05:02 CA 19-9 Antigen 2524 U/mL (0-37) H 01/15/17 05:02 - ABG ABG results: PT/INR, D-dimer PT 15.7 Seconds (9.4-12.1) H 01/18/17 08:16 - Attending Attestation I examined this patient and my medical decision-making was reviewed with the OCC MED PHYSICIAN/PA/Advanced Practice Nurse/Resident Physician. I agree with the documented findings, disposition and treatment plan as described except to the extent set forth below.
[2017-01-18] MEDS ORDERED: 0.9 % Sodium Chloride 1,000 ML IVC SCH (16:30)
[2017-01-18] MEDS ORDERED: Simethicone 40 MG/0.6 ML MLS IR ONE (16:32)
[2017-01-18] MEDS ORDERED: Tetracaine/Benzocaine/Butamben 200MG/SPRAY (100SPY/BOT) MM ONE (16:32)
[2017-01-18] MEDS: *HR* Midazolam HCl 5 MG/5 ML VIAL IVP PRN ×2 (16:34→16:36)
[2017-01-18] MEDS: *HR* FentaNYL (PF) 100 MCG/2 ML VIAL IVP PRN ×2 (16:34→16:36)
--- NOTE | 2017-01-18 19:17 | Oncology Inp Consult Note ---
Date of Encounter: 01/18/17 Time of Encounter: 17:00 Assessment and Plan (1) Liver metastases Status: Acute Assessment and plan: Partially obstructing distal esophageal mass concerning for malignancy with possible metastatic disease in the liver, hyperbilirubinemia without any biliary ductal dilation dictation, may not benefit from stent placement direct infiltration obtain final tissue diagnosis discussed findings on imaging as well as endoscopy with patient and daughter at bedside. He is currently not very symptomatic discussed palliative stent procedure, at a later date pain management for right upper quadrant pain. We will obtain HER-2/júnior staining in biopsy material plan for low-dose chemotherapy +/- Herceptin, and desires chemotherapy once diagnosis is confirmed. Alternatively hospice option was also discussed briefly. Patient would like to be discharged home tomorrow and will follow-up with us closely with lab works later this week. Patient understands plan of care, prognosis in general for metastatic esophageal cancer was discussed with family in detail. - Data of Consult Requesting Physician: Lise Iverson Primary Care Provider: Cici Godinez CNP - Consult Narrative Reason for consult: esophageal mass, liver lesions History of present illness: Mr. Berry is a 76 year old male with medical history significant for defibrillation, on antiemetic medication, hearing deficit, hospitalized with full abnormal imaging, she presented to the hospital with the right upper quadrant discomfort, also reports 1 week history of constipation, not much dysphagia or weight loss. CT imaging showed innumerable liver lesions consistent with metastatic disease pulmonary nodules in the right middle and right lower lobe concerning for metastatic disease. Asymmetric right colon wall thickening colonoscopy was recommended. Patient had undergone a colonoscopy and endoscopy today. Discussed findings with gastroenterology patient had a partially obstructing mass 34 cm from the incisors measuring 5 cm at the lower third of the esophagus. Oncologic consulted for possible metastatic disease in the liver, biopsies of the esophageal mass pending. And is very hard of hearing, family is very helpful in giving further details on history and physical Past Med Surg Social Fam HX - Past Medical History Medical history: COPD, CVA Psychiatric history: no psych history - Social History Smoking Status: Former smoker Smokeless Tobacco Status: No Alcohol use: none Drug use: none Medications and Allergies Fluticasone/Salmeterol [Advair 500-50 Diskus] 1 each IH BID 08/12/15 [History] Lisinopril [Zestril] 10 mg PO DAILY 08/12/15 [History] Omeprazole [PriLOSEC] 20 mg PO DAILY 08/12/15 [History] Potassium Chloride [Klor-Con Sprinkle] 10 meq PO DAILY 08/12/15 [History] Simvastatin [Zocor] 40 mg PO HS 08/12/15 [History] Multivit-Min/FA/Lycopen/Lutein [Centrum Silver Tablet] 1 each PO DAILY 01/14/17 [History] Southold-3/Dha/Epa/Fish Oil [Fish Oil 1,000 mg Softgel] 1,000 mg PO DAILY 01/14/17 [History] Warfarin [Coumadin] 2.5 mg PO SUMOTUWE 01/14/17 [History] Allergies aspirin Allergy (Verified 01/14/17 12:22) Hives Penicillins Allergy (Verified 01/14/17 12:22) Hives Review of systems: as in HPI Oncology - Exam - Constitutional Vitals: Temp Pulse Resp BP Pulse Ox 98.3 F 102 16 102/71 97 01/18/17 15:18 01/18/17 17:02 01/18/17 17:02 01/18/17 17:02 01/18/17 17:02 General appearance: average body habitus - Head Head exam: Present: atraumatic, normal inspection - Eye Eye exam: Present: scleral icterus - ENT ENT exam: Present: mucous membranes moist - Neck Neck exam: Present: full ROM - Respiratory Respiratory exam: Present: CTAB - Cardiovascular Cardiovascular exam: Present: irregular rhythm, +S1, +S2 - GI/Abdominal GI/Abdominal exam: Present: normal bowel sounds, soft - Extremities Exam Extremities exam: Present: normal inspection - Neurological Exam Neurological exam: Present: alert, oriented X3 - Psychiatric Psychiatric exam: Present: normal affect Oncology - Results - Labs Labs: Short CBC 01/18/17 Range/Units 08:16 WBC 10.2 (4.3-11.1) K/mcL Hgb 13.8 (12.9-16.9) g/dL Hct 40.8 (37.5-50.1) % Plt Count 207 (140-400) K/mcL Neutrophils # 7.0 (1.6-8.9) K/mcL BMP 01/18/17 08:16 Sodium 138 Potassium 4.2 Chloride 106 Carbon Dioxide 23 BUN 14 Creatinine 0.99 Glucose 75 Calcium 9.1 - Imaging and Cardiology CT scan - abdomen Status: image reviewed by me Consult Discharge Plan - Plan Referrals: Cici Godinez CNP [Primary Care Provider] -
[2017-01-19] MEDS: 0.9 % Sodium Chloride 1,000 ML IVC SCH (03:32)
[2017-01-19 08:20] VITALS: BP 124/82
[2017-01-19] MEDS: Multivit/Ca/Min/Fe/FA 1 TAB TABLET PO SCH (09:06)
[2017-01-19] MEDS: Budesonide/Formoterol 160/4.5 MDI IH SCH (10:24)
[2017-01-19] MEDS ORDERED: *HR* OxyCODONE Immed Rel 5 MG TABLET PO PRN (13:51)
--- NOTE | 2017-01-19 14:08 | Discharge Summary ---
Date of Encounter: 01/19/17 Time of Encounter: 14:05 - Discharge Diagnosis (1) Primary esophageal malignancy Priority: Primary Status: Acute (2) Abdominal pain Priority: Primary Status: Acute Qualifiers: Abdominal location: epigastric Qualified Code(s): R10.13 - Epigastric pain (3) Supratherapeutic INR Priority: Primary Status: Acute (4) Liver metastases Priority: Primary Status: Acute (5) Lung metastases Priority: Primary Status: Acute Qualifiers: Laterality: right Qualified Code(s): C78.01 - Secondary malignant neoplasm of right lung (6) Atrial fibrillation Priority: Secondary Status: Acute Qualifiers: Atrial fibrillation type: chronic Qualified Code(s): I48.2 - Chronic atrial fibrillation - Discharge Medications Prescriptions: OxyCODONE Immed Rel [Roxicodone 5 MG] 10 mg PO Q4HR PRN #80 tablet PRN Reason: Pain Warfarin [Coumadin] 2 mg PO DAILY@1800 #20 tablet Home Medications: Fluticasone/Salmeterol [Advair 500-50 Diskus] 1 each IH BID 08/12/15 [History] Lisinopril [Zestril] 10 mg PO DAILY 08/12/15 [History] Omeprazole [PriLOSEC] 20 mg PO DAILY 08/12/15 [History] Potassium Chloride [Klor-Con Sprinkle] 10 meq PO DAILY 08/12/15 [History] Simvastatin [Zocor] 40 mg PO HS 08/12/15 [History] Multivit-Min/FA/Lycopen/Lutein [Centrum Silver Tablet] 1 each PO DAILY 01/14/17 [History] [place]-3/Dha/Epa/Fish Oil [Fish Oil 1,000 mg Softgel] 1,000 mg PO DAILY 01/14/17 [History] OxyCODONE Immed Rel [Roxicodone 5 MG] 10 mg PO Q4HR PRN #80 tablet 01/19/17 [Rx] Warfarin [Coumadin] 2 mg PO DAILY@1800 #20 tablet 01/19/17 [Rx] Allergies/Adverse Reactions: Allergies aspirin Allergy (Verified 01/14/17 12:22) Hives Penicillins Allergy (Verified 01/14/17 12:22) Hives Date of admission: 01/15/17 03:11 Primary care physician: Cici Godinez CNP Consults: 01/15/17 08:58 Consult to Gastroenterology [CONS] Routine Consulting Provider: Sukumar Rubin Reason for Consult: Liver metastases; bowel wall thickenin Call Completed: No 01/19/17 11:11 Consult to Palliative Care [CONS] Routine Comment: Consulting Provider: Delfina Care Caryn Reason for Consult: for pain management Time Notified: 11:12 Call Completed: Yes Discharging clinician: Lise Iverson Anticipated date of discharge: 01/19/17 - Patient Status Disposition: Home, Self-Care Condition: Fair Functional capacity at discharge: independent ambulation Overall status at discharge: patient is progressing back to baseline - Discharge Instructions Instructions: Warfarin (By mouth), Oxycodone, Rapid Release (By mouth) Follow Up With: Anticoagulation,Clinic [Other] - 01/22/17 4:00 pm Godinez,Twin Pichardo MD [Non-Partnered Physician] - (Patient will need to make hospital f/u. The office at [facility] will only make appointments for the patient after discharge. Thank you) Amina Vásquez MD [Partnered Physician] - 01/28/17 3:40 pm - Diet and Activity Activity: resume usual activities as tolerated Diet: advance to your usual diet Interval History: Mr. Berry is a 76 year old male with PMHx of Afib on Coumadin, COPD, HTN who presented with RUQ abdominal pain. He recently had ultrasound scan of the liver showed multiple nodules throughout the liver suspicious for metastasis. Patient was advised to have a CT scan of the abdomen .His RUQ pain became severe and he presented to the ED. He denied fever, chest pain, SOB, melena, or hematochezia. He reports difficulty swallowing and discomfort in the throat for a few weeks. He has no known h/o cancers. CT of the chest showed distal esophageal mass, most likely primary. CT imaging showed innumerable liver lesions consistent with metastatic disease pulmonary nodules in the right middle and right lower lobe concerning for metastatic disease. He was noted to have supratherapeutic INR of 5.7 on admission. 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 Patient's family member at bedside. GI and oncology was consulted. Patient received 2 units of FFP, once INR was subtherapeutic, he underwent EGD and biopsy of the esophageal mass with GI. Palliative was consulted for pain control. Patient is being discharged today at home, he was offered home health but patient refused. At this time will arrange a follow-up appointment with oncology to review the results of biopsy and initiate treatment. Since he presented with supratherapeutic INR, will decrease the dose of Coumadin this time to 2 mg daily and will arrange INR clinic follow-up in 5 days. Both the patient and the family agreed with the plan. Hospital course: Mr. Berry is a 76 year old male Time spent discussing smoking cessation with patient: more than 10 minutes - Time Spent with Patient Total time spent providing and/or coordinating discharge services: Greater than 30 minutes - Constitutional Vitals: Temp Pulse Resp BP Pulse Ox 98.3 F 106 16 124/82 94 01/19/17 08:13 01/19/17 08:13 01/19/17 10:25 01/19/17 08:13 01/19/17 10:25 General appearance: Present: A&O X 3 Exam: - Head Head exam: Present: atraumatic, normal inspection - Eye Eye exam: Present: scleral icterus - ENT ENT exam: Present: mucous membranes moist - Neck Neck exam: Present: full ROM - Respiratory Respiratory exam: Present: CTAB - Cardiovascular Cardiovascular exam: Present: irregular rhythm, +S1, +S2 - GI/Abdominal GI/Abdominal exam: Present: normal bowel sounds, soft - Extremities Exam Extremities exam: Present: normal inspection - Neurological Exam Neurological exam: Present: alert, oriented X3 - Psychiatric Psychiatric exam: Present: normal affect - VTE Reasons for not Prescribing Prophylaxis: Not indicated-Anticoagulated or INR therapeutic
--- NOTE | 2017-01-19 14:41 | Palliative - Consult Note ---
Date of Encounter: 01/19/17 Time of Encounter: 14:00 - Assessment and Plan (1) Abdominal pain Current Visit: Yes Status: Acute Assessment and plan: Reviewed pt medication usage over this admission. He does admit to holding off pain medications as long as possible, that he doesn't want to use "addictive" pain medication. Discussed the difference in utilizing the medication to assist with pain caused by suspected cancer vs. addictive behaviors. He acknowledges understanding. He has only utilized morphine x1, Hydromorphone x1. and Oxycodone 4 times since admission. States the Oxycodone "only takes the edge off". He desires to be discharged today. Will recommend increasing Oxycodone to 10 mg every 4 hours PRN and letting cancer center follow up with pain management. Script written. Qualifiers: Abdominal location: epigastric Qualified Code(s): R10.13 - Epigastric pain (2) Therapeutic opioid induced constipation Current Visit: Yes Status: Acute Assessment and plan: Discussed with pt and daughter importance of bowel regimen with consistent opioid use. Encouraged stool softener with Senna bid. Daughter stated she would get something over the counter and administer bid and monitor BM's (3) Metastatic disease Current Visit: Yes Status: Acute Palliative-CN HPI - Data of Consult Consult date: 01/19/17 Requesting Physician: Lise Iverson Primary Care Provider: Cici Godinez CNP - Consult Narrative History of present illness: Mr. Berry is a 76 year old male who was admitted with abd pain. CT findings were suggestive of possible metastatic disease to liver and lungs. Gastroenterology was consulted and pt underwent EGD. Large mass noted and biopsied in distal esophagus. Awaiting biopsy results. Oncology consult has been initiated and they have seen pt. Palliative was consult to assist with pain management for his cancer related pain. Upon my visit, he is sitting on edge of bed, and daughter is at the bedside. He has hearing deficit and daughter helps with communication and writes things down for him. He c/o RUQ and occasional RLQ pain that is colicky in nature. Feels "squeezing" at times. Pain currently a 6 out of 10. States he has not identified any trigger that aggravates the pain. States he is fearful of taking "medications that can be addictive". Daughter states he waits until pain is excruciating, and then take a while to get under control. He is tentatively discharging home today and will f/u with cancer center once biospy is returned. CC: Lise Iverson Past Med Surg Social Fam HX - Past Medical History Medical history: COPD, CVA Psychiatric history: no psych history - Social History Smoking Status: Former smoker Smokeless Tobacco Status: No Alcohol use: none Drug use: none Medications and Allergies Fluticasone/Salmeterol [Advair 500-50 Diskus] 1 each IH BID 08/12/15 [History] Lisinopril [Zestril] 10 mg PO DAILY 08/12/15 [History] Omeprazole [PriLOSEC] 20 mg PO DAILY 08/12/15 [History] Potassium Chloride [Klor-Con Sprinkle] 10 meq PO DAILY 08/12/15 [History] Simvastatin [Zocor] 40 mg PO HS 08/12/15 [History] Multivit-Min/FA/Lycopen/Lutein [Centrum Silver Tablet] 1 each PO DAILY 01/14/17 [History] [place] [employer]-3/Dha/Epa/Fish Oil [Fish Oil 1,000 mg Softgel] 1,000 mg PO DAILY 01/14/17 [History] OxyCODONE Immed Rel [Roxicodone 5 MG] 10 mg PO Q4HR PRN #80 tablet 01/19/17 [Rx] Warfarin [Coumadin] 2 mg PO DAILY@1800 #20 tablet 01/19/17 [Rx] Allergies aspirin Allergy (Verified 01/14/17 12:22) Hives Penicillins Allergy (Verified 01/14/17 12:22) Hives All systems: reviewed and no additional remarkable complaints except as stated ( RUQ pain, constipation, epigastric pain occasional with intake) Palliative Care-Exam - Constitutional Vitals: Temp Pulse Resp BP Pulse Ox 98.3 F 106 16 124/82 94 01/19/17 08:13 01/19/17 08:13 01/19/17 10:25 01/19/17 08:13 01/19/17 10:25 General appearance: Present: average body habitus, no acute distress - Head Head Exam: Present: normal inspection, normocephalic - ENT ENT exam: Present: normal exam - Respiratory Respiratory exam: Present: decreased breath sounds, CTAB - Cardiovascular Cardiovascular exam: Present: +S1, +S2 - GI/Abdominal Exam GI/Abdominal exam: Present: distended, soft - Extremities Exam Extremities exam: Present: normal capillary refill, normal inspection - Neurological Exam Neurological exam: Present: alert, oriented X3, strengths equal and symetr throughout - Skin Skin exam: Present: dry, normal color Internal Medicine - CN: Reslt - Labs CBC & Chem 7: 01/18/17 08:16 01/18/17 08:16 - ABG Interpretation ABG results: PT/INR, D-dimer PT 15.7 Seconds (9.4-12.1) H 01/18/17 08:16 Consult Discharge Plan - Plan Instructions: Warfarin (By mouth), Oxycodone, Rapid Release (By mouth) Referrals: Twin Godinez MD [Non-Partnered Physician] - (Patient will need to make hospital f/u. The office at [facility] will only make appointments for the patient after discharge. Thank you) Amina Vásquez MD [Partnered Physician] - 01/28/17 3:40 pm Prescriptions: OxyCODONE Immed Rel [Roxicodone 5 MG] 10 mg PO Q4HR PRN #80 tablet PRN Reason: Pain Warfarin [Coumadin] 2 mg PO DAILY@1800 #20 tablet Palliative Quality Palliative Quality: Screen for Code Status: Yes, Screen for Goals of Care: Yes, Screen for Pain: Yes, If Pain Regimen Started, Initiate Bowel Regimen: Yes, Screen for Nausea/Vomitting: Yes
[2017-01-19] MEDS ORDERED: *HR* Warfarin 2 MG TABLET PO SCH (15:00)
== END 2017-01-19 16:20 | disposition home or self-care (01) | DRG 375 ==
LOC: 3ANU 12:20 → EMEROO 12:20 → 3ANU 18:12
PROVIDERS: ADMIT Internal Medicine; ATTEND Internal Medicine Endocrinology, Diabetes & Metabolism
PROC: ENDOEBX (2017-01-18 13:00)